=== PATIENT | female | born 1930 | race Caucasian/White ===

== ENCOUNTER 2017-06-20 13:21 | Emergency (ER) | payer MEDICARE, OTHER ==
--- NOTE | 2017-06-20 14:11 | RAD ---
INDICATION: Anxiety. Short of breath COMPARISON: None TECHNIQUE: An AP portable view obtained at 1359 hours is submitted. FINDINGS: Bones/Soft Tissues: There are no acute bony findings. There is left shoulder arthroplasty Cardiomediastinal: The cardiomediastinal silhouette is normal. Lungs: There are no infiltrates. Pleura: There are no pleural effusions. Other: None IMPRESSION: NO ACTIVE DISEASE.
[2017-06-20 14:16] LABS: ABS Basophils 0 10^3/ul (0-0.2); ABS Eosinophils 0 10^3/ul (0-0.6); ABS Lymphocytes 1.7 10^3/ul (1.0-4.8); ABS Monocytes 0.6 10^3/ul (0-0.8); ABS Neutrophils 5.6 10^3/ul (1.5-7.7); ABS Nucleated RBC 0 10^3/ul; Eosinophil % 0.2 % (0-6); Hematocrit 39 % (35-47); Hemoglobin 12.9 g/dl (12.0-16.0); Mean Corpuscular HGB Conc 33 g/dl (31-36); Mean Corpuscular Hemoglobin 28 pg (27-31); Mean Corpuscular Volume 84 fL (80-97); Mean Platelet Volume 9 um3 (7.4-10.4); Nucleated Red Blood Cells % 0; Platelet Count 241 10^3/ul (150-450); Red Blood Count 4.62 10^6/ul (4.0-5.4); Red Cell Distribution Width 15 % (10.5-15)
[2017-06-20 14:24] LABS: INR 0.89 (0.77-1.02)
[2017-06-20 14:32] LABS: EGFR Non-African American 83.7 (>60)
[2017-06-20] MEDS ORDERED: Potassium Chlor TAB* 20 MEQ TAB.ER PO ONE (14:53)
[2017-06-20 15:11] VITALS: BP 167/72
[2017-06-20 15:49] LABS: Urine Appearance Clear; Urine Blood 1+ (Negative); Urine Color Yellow; Urine Ketones Negative (Negative); Urine Protein Negative (Negative); Urine Specific Gravity 1.005 (1.010-1.030); Urine Urobilinogen Negative (Negative)
--- NOTE | 2017-06-20 20:51 | ED ---
Bret Jones Natalie, scribed for Jing Vazquez MD on 06/20/17 at 1519 . Psychiatric Complaint - HPI Summary HPI Summary: The patient is an 86 y/o F presenting to the ED c/o possible anxiety attacks. Her stomach gets jittery, hot flashes, gets scared, and starts crying, while living alone. She felt very nervous yesterday, which she took Xanax for 2x, to some relief. She went to sleep at 21:20 last night, which was earlier than normal. She woke up this morning at 05:30 and couldnt fall back asleep. The patient also states that she feels depressed because she isnt doing what she normally does. Her appetite has decreased, but she hasnt been sleeping more than normally. Shes been going to work as usual. The last time she went was last night, although she wasnt feeling well. She has had similar episodes of anxiety in the past. She denies SI or HI. Currently she feels tired and anxious. She took 2x Xanax at 07:30 and 13:00 today [employer]. She didnt have much to eat, just toast, coffee, and yogurt. Her PCP is Dr. Zamarripa, who prescribed her Reglan, which was discontinued, and then Erythromycin base 250mg take 1 tablet PO 3x daily with meals for decreased GI motility started 06/06/17. She also takes half of a 25mg Zoloft every night. Pt has been a for 33 years. Her of a massive heart attack at a young age. Her daughters live nearby. - History Of Current Complaint Chief Complaint: EDPsychosocial Time Seen by Provider: 06/20/17 13:38 Hx Obtained From: Patient, Family/[employer] Program Coordinator - 2 daughters with pt Onset/Duration: Lasting Hours, Resolved Timing: Constant Severity Initially: Moderate Severity Currently: Mild Character: Depressed, Anxious Aggravating Factor(s): Nothing Alleviating Factor(s): Medication - Xanax Associated Signs And Symptoms: Positive: Appetite Change - decreased Related History: Positive For: Prior Psychiatric Issues - anxiety Has Suicidal: Denies: Thoughts, With A Plan Has Homicidal: Denies: Thoughts, With A Plan - Allergies/Home Medications Allergies/Adverse Reactions: Allergies Allergy/AdvReac Type Severity Reaction Status Date / Time latex Allergy Unknown Verified 06/20/17 15:00 Reaction Details oxycodone Allergy Hallucinati Verified 06/20/17 15:00 ons pantoprazole Allergy Diarrhea Verified 06/20/17 15:00 PMH/Surg Hx/FS Hx/Imm Hx Previously Healthy: No Endocrine/Hematology History: Denies: Hx Diabetes Cardiovascular History: Reports: Hx Hypertension Denies: Hx Pacemaker/ICD GI History: Reports: Hx Gastroesophageal Reflux Disease - WELL CONTROLLED Musculoskeletal History: Reports: Hx Arthritis - GENERALIZED Sensory History: Reports: Hx Contacts or Glasses, Hx Hearing Aid Opthamlomology History: Reports: Hx Contacts or Glasses Psychiatric History: Reports: Hx Anxiety - on xanax and small dose of zoloft 2017 Denies: Hx Panic Disorder - Cancer History Hx Chemotherapy: No Hx Radiation Therapy: No - Surgical History Surgery Procedure, Year, and Place: HYSTERECTOMY, lg, appendectomy,partial rt knee replacement,cataract. shoulder replacement Hx Anesthesia Reactions: No Infectious Disease History: No Infectious Disease History: Denies: History Other Infectious Disease, Traveled Outside the [place] in Last 30 Days - Family History Known Family History: Positive: Cardiac Disease - Social History Occupation: Employed Part-time Lives: Alone Alcohol Use: Rare Substance Use Type: Reports: None Smoking Status (MU): Never Smoked Tobacco Review of Systems Negative: Fever Cardiovascular: Negative Respiratory: Negative Gastrointestinal: Negative Musculoskeletal: Negative Skin: Negative Neurological: Negative Positive: Anxious, Depressed, Other - POSITIVE: decreased appetitie; NEGATIVE: SI or HI All Other Systems Reviewed And Are Negative: Yes Physical Exam - Summary Physical Exam Summary: Appearance: Well-appearing, mild distress, Well-nourished, She is calm and composed in the ER with good eye contact, no tremors or shaking Skin: Warm, color reflects adequate perfusion Head: Normal Head/Face inspection Eyes: Conjunctiva clear ENT: Normal inspection Neck: Supple, no nodes, no JVD. Respiratory: Lungs clear, Normal breath sounds, no respiratory distress Cardio: RRR, No murmur, pulses normal, brisk capillary refill Abdomen: soft, nontender Bowel sounds: present Musculoskeletal: Strength Intact/ ROM intact. No calf tenderness. No edema. Neuro: Alert, muscle tone normal, facial symmetry, speech normal, sensory/motor intact Psychological: Normal Triage Information Reviewed: Yes Vital Signs On Initial Exam: Initial Vitals Temp Pulse Resp BP Pulse Ox 98.2 F 83 16 161/64 97 03/04/18 13:26 06/20/17 13:26 06/20/17 13:26 06/20/17 13:26 06/20/17 13:26 Vital Signs Reviewed: Yes Diagnostics - Vital Signs Vital Signs Temp Pulse Resp BP Pulse Ox 06/20/17 15:03 74 167/72 94 06/20/17 15:00 74 95 06/20/17 14:14 76 94 06/20/17 13:26 98.2 F 83 16 161/64 97 - Laboratory Lab Results: Lab Results 06/20/17 06/20/17 06/20/17 Range/Units 14:07 14:07 14:07 WBC (3.5-10.8) 10^3/ul RBC (4.0-5.4) 10^6/ul Hgb (12.0-16.0) g/dl Hct (35-47) % MCV (80-97) fL MCH (27-31) pg MCHC (31-36) g/dl RDW (10.5-15) % Plt Count (150-450) 10^3/ul MPV (7.4-10.4) um3 Neut % (Auto) (38-83) % Lymph % (Auto) (25-47) % [place] % (Auto) (0-7) % Eos % (Auto) (0-6) % Baso % (Auto) (0-2) % Absolute Neuts (auto) (1.5-7.7) 10^3/ul Absolute Lymphs (auto) (1.0-4.8) 10^3/ul Absolute Monos (auto) (0-0.8) 10^3/ul Absolute Eos (auto) (0-0.6) 10^3/ul Absolute Basos (auto) (0-0.2) 10^3/ul Absolute Nucleated RBC 10^3/ul Nucleated RBC % INR (Anticoag Therapy) 0.89 (0.77-1.02) Sodium 137 (133-145) mmol/L Potassium 3.2 L (3.5-5.0) mmol/L Chloride 100 L (101-111) mmol/L Carbon Dioxide 27 (22-32) mmol/L Anion Gap 10 (2-11) mmol/L BUN 9 (6-24) mg/dL Creatinine 0.67 (0.51-0.95) mg/dL Est GFR ( Amer) 107.6 (>60) Est GFR (Non-Af Amer) 83.7 (>60) BUN/Creatinine Ratio 13.4 (8-20) Glucose 117 H (70-100) mg/dL Lactic Acid (0.5-2.0) mmol/L Calcium 10.0 (8.6-10.3) mg/dL Magnesium 2.1 (1.9-2.7) mg/dL Total Bilirubin 0.40 (0.2-1.0) mg/dL AST 17 (13-39) U/L ALT 11 (7-52) U/L Alkaline Phosphatase 66 (34-104) U/L Total Creatine Kinase 87 (10-223) U/L Troponin I 0.01 (<0.04) ng/mL C-Reactive Protein 1.16 (< 5.00) mg/L B-Natriuretic Peptide 129 H ( - 100) pg/mL Total Protein 7.0 (6.4-8.9) g/dL Albumin 4.1 (3.2-5.2) g/dL Globulin 2.9 (2-4) g/dL Albumin/Globulin Ratio 1.4 (1-3) TSH 2.78 (0.34-5.60) mcIU/mL Salicylates < 2.50 (<30) mg/dL Acetaminophen < 15 mcg/mL Serum Alcohol < 10 (<10) mg/dL 06/20/17 06/20/17 Range/Units 14:07 14:07 WBC 8.0 (3.5-10.8) 10^3/ul RBC 4.62 (4.0-5.4) 10^6/ul Hgb 12.9 (12.0-16.0) g/dl Hct 39 (35-47) % MCV 84 (80-97) fL MCH 28 (27-31) pg MCHC 33 (31-36) g/dl RDW 15 (10.5-15) % Plt Count 241 (150-450) 10^3/ul MPV 9 (7.4-10.4) um3 Neut % (Auto) 70.6 (38-83) % Lymph % (Auto) 21.0 L (25-47) % [place] % (Auto) 7.9 H (0-7) % Eos % (Auto) 0.2 (0-6) % Baso % (Auto) 0.3 (0-2) % Absolute Neuts (auto) 5.6 (1.5-7.7) 10^3/ul Absolute Lymphs (auto) 1.7 (1.0-4.8) 10^3/ul Absolute Monos (auto) 0.6 (0-0.8) 10^3/ul Absolute Eos (auto) 0 (0-0.6) 10^3/ul Absolute Basos (auto) 0 (0-0.2) 10^3/ul Absolute Nucleated RBC 0 10^3/ul Nucleated RBC % 0 INR (Anticoag Therapy) (0.77-1.02) Sodium (133-145) mmol/L Potassium (3.5-5.0) mmol/L Chloride (101-111) mmol/L Carbon Dioxide (22-32) mmol/L Anion Gap (2-11) mmol/L BUN (6-24) mg/dL Creatinine (0.51-0.95) mg/dL Est GFR ( Amer) (>60) Est GFR (Non-Af Amer) (>60) BUN/Creatinine Ratio (8-20) Glucose (70-100) mg/dL Lactic Acid 1.3 (0.5-2.0) mmol/L Calcium (8.6-10.3) mg/dL Magnesium (1.9-2.7) mg/dL Total Bilirubin (0.2-1.0) mg/dL AST (13-39) U/L ALT (7-52) U/L Alkaline Phosphatase (34-104) U/L Total Creatine Kinase (10-223) U/L Troponin I (<0.04) ng/mL C-Reactive Protein (< 5.00) mg/L B-Natriuretic Peptide ( - 100) pg/mL Total Protein (6.4-8.9) g/dL Albumin (3.2-5.2) g/dL Globulin (2-4) g/dL Albumin/Globulin Ratio (1-3) TSH (0.34-5.60) mcIU/mL Salicylates (<30) mg/dL Acetaminophen mcg/mL Serum Alcohol (<10) mg/dL Result Diagrams: 06/20/17 14:07 06/20/17 14:07 Lab Statement: Any lab studies that have been ordered have been reviewed, and results considered in the medical decision making process. - Radiology CXR Xray Interpretation: No Acute Changes - No active disease. ED physician has reviewed this report. Radiology Interpretation Completed By: Radiologist - EKG 14:15 Cardiac Rate: NL EKG Rhythm: Sinus Rhythm - 78BPM ST Segment: Non-Specific Ectopy: None EKG Interpretation: Nml AVIVCT. Porlonged QTc (517). Nml axis. EKG Comparison: No Significant Change - from 07/23/14, slightly longer QTc Re-Evaluation - Re-Evaluation First Eval Re-Evaluation Time: 15:54 Change: Improved Comment: The patient is agreeable with being discharged home. Daughters are with pt. Pt again denies SI/HI. Course/Dx - Course Course Of Treatment: Pt with increased anxiety and depression lately, wants to determine if there is a medical cause for this, so presents for admission. Pt denies SI/HI. Pt's medications reviewed during this visit. Allergies noted. I am aware the patient's potassium is low, so I ordered potassium chloride 40 meq. The patient will be discharged home with prescription for potassium x 5 days. She is advised to see Dr. Zamarripa before potassium prescription is up in five days. Pt will discontinue the erythromycin base until she sees Dr. Zamarripa again. She will continue her sertraline and xanax as directed. She is agreeable with this plan. - Differential Dx/Clinical Impression Differential Diagnosis/HQI/PQRI: Positive: Acute Psychosis, Anxiety, Depression , Suicidal Ideation Provider Diagnosis: Epigastric pain, Delayed gastric emptying, Hypokalemia, Anxiety Discharge - Discharge Plan Condition: Stable Disposition: HOME Prescriptions: Potassium Chlor TAB* [Potassium Chlor TAB 20 MEQ*] 40 meq PO DAILY #5 tab.er Patient Education Materials: Hypokalemia (ED), Depression (ED), Anxiety (ED) Referrals: Abdirashid Zamarripa DO [Primary Care Provider] - 2 Days Additional Instructions: We gave you 1 dose of potassium of 40milliequivalents in the ER for your potassium level which was 3.2. You are prescribed to take potassium 1 time a day for five days until you see Dr. Zamarripa. You may stop the erythromycin base until you see Dr. Zamarripa again. You may continue your sertraline and xanax as directed. We have sent a urine culture for you today. We will contact you if you need further treatment based on these results that will take approximately two days for results. RETURN TO THE ER FOR ANY NEW OR WORSENING SYMPTOMS The documentation as recorded by the Bret us Natalie accurately reflects the service I personally performed and the decisions made by me, Jing Vazquez MD.
== END 2017-06-20 16:22 | disposition home or self-care (01) ==
LOC: ED 13:21
DX: R10.13 Epigastric pain (principal); E87.6 Hypokalemia; F41.9 Anxiety disorder, unspecified; F32.9 Major depressive disorder, single episode, unspecified
CPT/HCPCS: 36415; 71045; 80053; 80307; 80320; 80329; 81003; 81015; 82550; 83605; 83735; 83880; 84443; 84484; 85025; 85610; 86140; 87086; 93005; 99282; A9270-GY; G0480